=== PATIENT | female | born 1955 | race Caucasian/White ===

== ENCOUNTER 2022-11-07 10:44 | Outpatient (REF) | payer MEDICARE, SELFPAY ==
[2022-11-07 11:27] LABS: MANUAL DIFF FLAG NO
[2022-11-07 11:36] LABS: Basophils Absolute Auto 0.1 X10*3/uL (0.0-0.2); Basophils Percent Auto 0.6 % (0-2); Eosinophils Absolute Auto 0.1 X10*3/uL (0.0-0.4); Eosinophils Percent Auto 1.4 % (0-4); Hematocrit 43.5 % (37.0-47.0); Hemoglobin 15.4 g/dl (12.0-16.0); Imm Gran Abs Auto 0.03 X10*3/uL (0.00-0.03); Imm Gran Pct Auto 0.4 % (0.0-0.4); Lymphocytes Percent Auto 24.9 % (20-40); Mean Corpuscular HGB Conc 35.4 g/dl (31.0-35.0); Mean Corpuscular Volume 90.4 fL (80.0-98.0); Mean Platelet Volume 9.7 fL (9.4-12.3); Monocytes Absolute Auto 0.9 X10*3/uL (0.1-1.2); Monocytes Percent Auto 11.5 % (2-11); Neutrophils Absolute Auto 4.9 x10*3/uL (2.0-8.3); Neutrophils Percent Auto 61.2 % (45-73); Platelet Count 227 X10*3/uL (160-400); Red Blood Count 4.81 X10*6/uL (4.20-5.50); Red Cell Distribution Width 12.5 % (11.0-16.0)
[2022-11-07 12:27] LABS: Erythrocyte Sedimentation Rate 10 MM/HR (0-20)
[2022-11-07 12:56] LABS: Anion Gap 10 (12-20); Blood Urea Nitrogen 15 mg/dL (9-16); Calcium 8.8 mg/dL (8.4-10.2); Carbon Dioxide 30 mmol/L (22-29); Chloride 100 mmol/L (96-108); Estimated Glomerular Filt Rate 53; Glucose Random 83 mg/dL (60-115); Potassium 3.3 mmol/L (3.3-5.1); Sodium 137 mmol/L (135-145); Uric Acid 10.1 mg/dL (2.4-5.7)
[2022-11-07 13:12] LABS: Rheumatoid Factor < 13.0 IU/mL (<15.0)
[2022-11-11 15:09] LABS: CRP High Sensitivity 4.1 mg/L
== END 2022-11-07 10:45 | disposition home or self-care (01) ==
LOC: HO.WFDLDS 10:44
PROVIDERS: Visit Provider Family Medicine
DX: Z00.00 Encounter for general adult medical examination without abnormal findings (principal); M79.676 Pain in unspecified toe(s); M79.89 Other specified soft tissue disorders
CPT/HCPCS: 36415; 80048; 84550; 85025; 85652; 86141; 86431

== ENCOUNTER 2023-06-17 08:15 | Outpatient (AMB) | payer MEDICARE, SELFPAY ==
--- NOTE | 2023-06-17 08:18 | MHC.OFFVIS ---
Intake Vital Signs 06/17/23 08:21 Height 5 ft 6 in Weight 208 lb BMI 33.6 Intake Visit Reasons: New Pt - Right Shoulder Pain Intake Note: Jarek is a 67 year old Left handed male who presents as a new patient with Right shoulder pain. Patient reports that his pain is a 9 on the 1-10 pain scale the pain is at it's worse when reaching forward or above the head. He has had surgery on his Right shoulder at [facility] in 2019. The patient states that at that time he had ?retorn a tendon?. The patient reports weakness when lifting his right hand above shoulder height. He has done physical therapy which aggravated his symptoms. He has also tried Tylenol and anti-inflammatory medicines as well as tramadol which gave him minimal relief. He has had injections in the past which gave him no relief. Allergies No Known Allergies Allergy (Verified 06/17/23 08:24) Medication List - Last Reconciled 06/17/23 by Maikol Salmon MD chlorthalidone 25 mg PO DAILY finasteride 1 mg PO DAILY losartan 25 mg PO DAILY meloxicam 15 mg PO DAILY tramadol 50 mg PO BID PRN 2 days [facility] Surgical History Hx of shoulder surgery (~2019) Social History Patient Tobacco Use Status: Former Tobacco user Physical Exam Vital Signs: BMI result Body Mass Index 33.6 Const Other: Well-nourished well-developed very friendly male awake alert and oriented x3 in no acute distress Extrem Other: Bilateral upper extremity examination shows good capillary refill, no skin lesions noted, normal sensation light touch Right shoulder examination shows decreased active range of motion but almost full passive range of motion when compared to his left shoulder, 4/5 strength with supraspinatus testing, positive impingement signs, no instability Results Reviewed Results Reviewed: X-rays of the patient's right shoulder show moderate acromioclavicular joint narrowing, a type 2 acromion, no acute bony abnormalities Assessment & Plan Assessment & Plan (1) Right shoulder pain: Code(s): M25.511 - Pain in right shoulder Plan Mr. Hwang presents with progressively worsening right shoulder pain and weakness most likely due to a recurrent rotator cuff tear. Thus, I will send the patient for an MRI of his right shoulder for further evaluation. I will see him back once the MRI is completed to discuss the findings and treatment options. He will continue with his range of motion exercises in the meantime. I spent 22 minutes in reviewing the patient's records and imaging studies, seeing the patient and documenting in the medical record. Orders: Orders XR shoulder RT min 2V Today M25.511 - Pain in right shoulder MR shoulder RT wo con Today M25.511 - Pain in right shoulder Coding Level of Care Code New Pt Level 2 (55935) Diagnoses Right shoulder pain M25.511
[2023-06-17 08:21] VITALS: BMI 33.6
== END 2023-06-17 08:39 | disposition home or self-care (01) ==
PROVIDERS: Visit Provider Orthopaedic Surgery
DX: M25.511 Pain in right shoulder (principal)
CPT/HCPCS: 99202

== ENCOUNTER 2023-06-17 12:05 | Outpatient (REF) | payer MEDICARE, SELFPAY ==
--- NOTE | ~2023-06-17 | XR_ITS ---
EXAMINATION: XR SHOULDER, RIGHT CLINICAL INFORMATION: Pain. COMPARISON: None available. TECHNIQUE: AP neutral and scapular Y views of the right shoulder are submitted. FINDINGS: There is mild bony demineralization. The glenohumeral joint is intact and shows mild peripheral osteophyte formation. The acromioclavicular and coracoclavicular intervals are normal. There is mild osteoarthritic change of the acromioclavicular joint. No fracture or dislocation is seen. There is a small distal acromial undersurface osteophyte, and there is mild cortical irregularity of the greater tuberosity of the proximal right humerus. No focal soft tissue calcification or foreign body is seen. There is no right pneumothorax. XR/XR shoulder RT min 2V IMPRESSION: 1. There is mild osteoarthritic change of the right glenohumeral and acromioclavicular joints. 2. Findings suggest mild right rotator cuff impingement.
== END 2023-06-17 12:06 | disposition home or self-care (01) ==
LOC: HO.HOSX 12:05
PROVIDERS: Visit Provider Orthopaedic Surgery
DX: M25.511 Pain in right shoulder (principal)
CPT/HCPCS: 73030; 99202

== ENCOUNTER 2023-07-14 08:49 | Outpatient (AMB) | payer MEDICARE, SELFPAY ==
[2023-07-14 08:53] VITALS: BMI 33.6
--- NOTE | 2023-07-14 08:53 | MHC.OFFVIS ---
Intake Vital Signs 07/14/23 08:53 Height 5 ft 6 in Weight 208 lb BMI 33.6 Intake Visit Reasons: OV - right shoulder MRI review Intake Note: Jarek is a 67 year old Left hand dominate male who presents for a MRI review of his Right shoulder. The patient describes his pain as sharp in nature. He did undergo right shoulder rotator cuff repair surgery performed by another orthopedic surgeon in 2014. The patient states that following that surgery he fell onto his right shoulder and was told that he ?re-tear? his rotator cuff tendons. The patient did not wish to undergo further surgery at that time. The patient reports weakness when lifting his right hand above shoulder height. He has tried Tylenol and anti-inflammatory medicines which gave him minimal relief. Allergies No Known Allergies Allergy (Verified 07/14/23 08:54) Medication List - Last Reconciled 07/14/23 by Maikol Salmon MD chlorthalidone 25 mg PO DAILY finasteride 1 mg PO DAILY losartan 25 mg PO DAILY meloxicam 15 mg PO DAILY tramadol 50 mg PO BID PRN 2 days [facility] Surgical History Hx of shoulder surgery (~2019) Social History Patient Tobacco Use Status: Former Tobacco user Physical Exam Vital Signs: BMI result Body Mass Index 33.6 Const Other: Well-nourished well-developed very friendly male awake alert and oriented x3 in no acute distress Extrem Other: Bilateral upper extremity examination shows good capillary refill, no skin lesions noted, normal sensation light touch Right shoulder examination shows slightly decreased range of motion when compared to his left shoulder, 4 out of 5 strength with supraspinatus testing, positive impingement signs, tenderness over his acromioclavicular joint, no instability Results Reviewed Results Reviewed: Patient MRI of the patient's right shoulder shows mild to moderate glenohumeral joint degenerative changes, a type 2 acromion, severe acromioclavicular joint narrowing, signal change within the supraspinatus tendon due to partial-thickness tearing versus a small full-thickness tear Assessment & Plan Assessment & Plan (1) Impingement of right shoulder: Code(s): M25.811 - Other specified joint disorders, right shoulder Plan Mr. Hwang presents with right shoulder pain and weakness due to impingement syndrome, acromioclavicular joint arthritis and partial-thickness rotator cuff tearing versus possible recurrent full-thickness tearing. I had a lengthy discussion with the patient regarding the treatment options. He wishes to hold off on surgery for now. I did give him a prescription to go to formal physical therapy. The do's and don'ts of lifting were discussed at length with the patient. He will contact me prior to his follow-up appointment in 2 months should any questions or concerns arise. If he fails continued non operative treatments we will further discuss the risks and benefits of right shoulder surgery. I spent 22 minutes in reviewing the patient's records and imaging studies, seeing the patient and documenting in the medical record. Orders: Orders PT Evaluation and Treatment Today M25.811 - Other specified joint disorders, right shoulder Coding Level of Care Code Est Pt Level 2 (97510) Diagnoses Impingement of right shoulder M25.811
== END 2023-07-14 09:14 | disposition home or self-care (01) ==
PROVIDERS: Visit Provider Orthopaedic Surgery
DX: M25.811 Other specified joint disorders, right shoulder (principal)
CPT/HCPCS: 99213

== ENCOUNTER → 2023-07-14 08:49 | Outpatient (BNVA) | payer MEDICARE, SELFPAY | PROVIDERS: Visit Provider Orthopaedic Surgery | DX: M25.811 Other specified joint disorders, right shoulder (principal) | CPT/HCPCS: 99212 ==

== ENCOUNTER 2024-04-22 13:46 | Outpatient (AMB) | payer MEDICARE, SELFPAY ==
[2024-04-22 14:09] VITALS: BP 116/70; PULSE 72; O2SAT 98; BMI 33.4
--- NOTE | 2024-04-22 14:09 | MHC.OFFVIS ---
Vital Signs 04/22/24 14:09 Height 5 ft 6 in Weight 207 lb 3.752 oz BMI 33.4 BP 116/70 Blood Pressure Location Lt brachial Position Sitting Pulse 72 Pulse Source Pulse Oximeter Pulse Oximetry (%) 98 Oxygen Delivery Method Room Air Intake Visit Reasons: Arthritis/CM APT Intake Note: Patient presents for follow up on arthritis in hands and knees. Allergies No Known Allergies Allergy (Verified 04/22/24 14:12) HPI HPI Arthritis/CM APT: Details: He has been experiencing pain in his thumbs for a few months. He took meloxicam for a couple of days then held it for a day or 2 then took it again with relief. 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 [facility] Surgical History Hx of shoulder surgery (~2019) Social History Patient Tobacco Use Status: Former Tobacco user Review of Systems Const All systems reviewed & are unremarkable except as noted in HPI and below Physical Exam Vital Signs: Last Vital Signs Pulse 72 04/22/24 14:09 BP 116/70 04/22/24 14:09 Pulse Ox 98 04/22/24 14:09 Oxygen Delivery Method Room Air 04/22/24 14:09 BMI result Body Mass Index 33.4 Const Other: General: Comfortable CVS: RRR Respiratory: clear to auscultation bilaterally. Good respiratory effort Skin: No lesions seen MSK: Tender to palpate bilateral CMCs with squaring. Tender 1st MCPs. Able to make a fist. No synovitis noticed. [place] nodes present. Assessment & Plan Assessment & Plan (1) Osteoarthritis of CMC joint of thumb: Comment: Bilateral. We discussed the natural course and conservative management. Code(s): M18.9 - Osteoarthritis of first carpometacarpal joint, unspecified Category: Medical Plan: Requesting labs from recent hospitalization at [facility] with attention to creatinine, AST and ALT He will start taking meloxicam 15 mg daily for 1-2 weeks consistently. If no benefit he will then try using OTC diclofenac gel 1% applied to affected area 3 times a day Prescription for bilateral CMC splints prescribed Return to clinic in 3 months (2) Osteoarthritis of hands, bilateral: Comment: Clinical diagnosis. Code(s): M19.041 - Primary osteoarthritis, right hand; M19.042 - Primary osteoarthritis, left hand Category: Medical Plan: See above Plan See above Medications: New [cmc splints bilateral] As directed 2 ea 0RF cmc osteoarthritis bilateral Coding Level of Care Code Est Pt Level 3 (61037) Complex EM visit Add On G2211 Diagnoses Osteoarthritis of CMC joint of thumb M18.9 Osteoarthritis of hands, bilateral M19.041; M19.042
--- OUTSIDE RECORDS SUMMARY | 2024-04-28 02:41 | XMS_ITS ---
Author Name [facility] Organization Unknown History of Medication Use Medication Directions Dispensed Refills Start Date End Date Stat us CiprodexTakeNo date recordedNo form recordedNo frequency recordedNo route recordedNo set duration recordedNo set duration amount recordedsuspendedNo dosage strength recordedNo dosage strength units of measure recorded 05/09/2023 suspended finasterideTake (oral)[id number] frequency recordedoralNo set duration recordedNo set duration amount tkmydqbhbpfnwf2rx 05/09/2023 active promethazine-DMTake 5 ml (oral) 3 times per day PRN - Cough for 7 [id number] times per egbqsll3urzpptowgj5.25-15m g/5 mL 05/09/2023 active losartanTake (oral)[id number] frequency recordedoralNo set duration recordedNo set duration amount ckhhkxfnsekgnx71jt 05/09/2023 active promethazine-DMTake 5 ml (oral) 3 times per day PRN - Cough for 7 [id number] times per uyvvkhr9czgmcqgliw7.25-15m g/5 mL 05/09/2023 active indomethacinTake (oral)[id number] frequency recordedoralNo set duration recordedNo set duration amount kpllnenvmlbzuc98aj 05/09/2023 active benzonatateTake 1 ca psule (Oral) 3 times per day PRN - Cough for 5 [id number] times per wpuOwbp0fvxehquphr680di 05/09/2023 acti ve meloxicamTake (oral)[id number] frequency recordedoralNo set duration recordedNo set duration amount vgerkgsuybayyi94xq 05/09/2023 active chlorthalidoneTake (oral)[id number] frequency recordedoralNo set duration recordedNo set duration amount mirruavihntriz49xb 05/09/2023 active Problems Problem Status Onset Date Problem Type Date of Resoluti on Source Tachycardia, unspecified active 2023-05-07 ProblemAct [facility] hypertension active ProblemAct [facility] Hyperlipidemia, unspecified active ProblemAct [facility] Cough, unspecified active 2023-05-07 ProblemAct [facility] Other specified arthritis, unspecified site active ProblemAct [facility] Dyspnea, unspecified active 2023-05-07 ProblemAct [facility]
== END 2024-04-22 14:56 | disposition home or self-care (01) ==
PROVIDERS: Visit Provider Internal Medicine Rheumatology
DX: M18.9 Osteoarthritis of first carpometacarpal joint, unspecified (principal); M19.041 Primary osteoarthritis, right hand; M19.042 Primary osteoarthritis, left hand
CPT/HCPCS: 99213; G2211

== ENCOUNTER → 2024-04-22 13:46 | Outpatient (BNVA) | payer MEDICARE, SELFPAY | PROVIDERS: Visit Provider Internal Medicine Rheumatology | DX: M18.9 Osteoarthritis of first carpometacarpal joint, unspecified (principal); M19.041 Primary osteoarthritis, right hand; M19.042 Primary osteoarthritis, left hand | CPT/HCPCS: 99212 ==

== ENCOUNTER 2024-06-16 09:46 | Outpatient (REF) | payer MEDICARE, SELFPAY ==
--- NOTE | ~2024-06-16 | XR_ITS ---
EXAMINATION: XR SHOULDER 2 OR MORE VIEWS RIGHT HISTORY: M25.511 - Pain in right shoulder COMPARISON: Comparison is made with the prior examination dated 06/17/2023. FINDINGS: Two views of the right shoulder are submitted. Osseous mineralization is normal. There is no fracture or dislocation. Again seen is mild osteoarthritis of the glenohumeral and acromioclavicular joints with osteophyte formation. The soft tissues are unremarkable. XR/XR shoulder RT min 2V IMPRESSION: Mild osteoarthritis of the glenohumeral and acromioclavicular joints. Electronically signed by: Jose Schaffer MD 06/17/2024 07:45 AM [facility]
--- OUTSIDE RECORDS SUMMARY | 2024-06-16 11:29 | XMS_ITS | Clinical Summary ---
Author Organization [facility] Address [address] [place] [address] Care Team Providers Care Claim Approver Name Role Phone Boom Patel MD Primary Care Provider [phone] Allergies No known active allergies Medications Medication Sig Dispensed Refills Start Date End Date Status finasteride (PROPECIA) 1 MG tablet 0 04/20/2019 Active ACETAMINOPHEN EXTRA STRENGTH 500 MG tablet TAKE 1 TABLET TID 0 10/20/2019 Active amoxicillin (AMOXIL) 500 MG tablet Take 4 tabs 1 hour prior to dental appointment 20 tablet 3 11/02/2019 Active oxyCODONE (ROXICODONE) 5 MG immediate release tablet 1-2 tabs p.o. every 4 to 6 hours as needed for pain. May fill for lesser quantity 40 tablet 0 11/02/2019 Active Additional Information Patient not taking.Reason: Other, Reported on 09/05/2020 gabapentin (NEURONTIN) 100 MG capsule TK 3 CS PO HS 90 capsule 0 11/03/2019 Active Sennosides-Docusat e Sodium (SENNA PLUS) 8.6-50 MG CAPS Take 8.6 capsules by mouth 2 (two) times a day. 60 capsule 1 11/03/2019 Active oxyCODONE HCl ER (OXYCONTIN) 10 MG T12A controlled release tablet Take 1 tablet (10 mg total) by mouth every 12 (twelve) hours. 10 tablet 0 11/06/2019 Active Additional Information Patient not taking.Reason: Other, Reported on 09/05/2020 SENNA PLUS 8.6-50 MG TK 1 T PO BID 0 11/06/2019 Active Morphine Sulfate ER (MS CONTIN) 15 MG TBCR Take 1 tablet (15 mg total) by mouth every 12 (twelve) hours. 20 tablet 0 2019 Active Additional Information Patient not taking.Reason: Other, Reported on 09/05/2020 doxepin (SINEquan) 10 MG capsule Take 10 mg by mouth every night at bedtime. 0 06/14/2020 Active celecoxib (CeleBREX) 200 MG capsule celecoxib 200 mg capsule 0 Active Active Problems Problem Noted Date Diagnosed Date Postop check 11/02/2019 Arthritis of knee, right 06/01/2019 Family History Medical History Relation Name Comments Clotting disorder Father Relation Name Status Comments Father Social History Tobacco Use Types Packs/Day Years Used Date Smoking Tobacco: Never Assessed Sex and Gender Information Value Date Recorded Sex Assigned at Not on file Gender Identity Not on file Sexual Orientation Not on file Job Start Date Occupation Industry Not on file Not on file Not on file Last Filed Vital Signs Vital Sign Reading Time Taken Comments Blood Pressure - - Pulse - - Temperature - - Respiratory Rate - - Oxygen Saturation - - Inhaled Oxygen Concentration - - Weight 90.7 kg (200 lb) 09/05/2020 3:11 PM EDT Height 167.6 cm (5' 6 ) 09/05/2020 3:11 PM EDT Body Mass Index 32.28 09/05/2020 3:11 PM EDT Plan of Treatment Health Maintenance Due Date Last Done Comments Hepatitis C Screening 1955 COVID-19 Vaccine (#1) 06[birth year]16[birth year]1955 Depression Screening 1966 BMI Counseling 1972 Preventative Health Evaluation 1972 DTap / Tdap / Td (1 - Tdap) 1973 Colon Cancer Screening (Colonoscopy) 12/15/1999 Shingrix-Zoster Vaccine (1 of 2) 2004 Fall Risk Assessment 12/15/2019 Pneumococcal Vaccine (1 of 1 - PCV) 12/15/2019 Influenza Vaccine (#1) 2024 RSV Adult > 60+ Yrs or Pregn ant (1 - 1-dose 75+ series) 2029 Hepatitis B Vaccines Aged Out No long er eligible based on patient's age to complete this topic RSV Ped < 20 months Aged Out No longe r eligible based on patient's age to complete this topic Care Teams Claim Approver Relationship Specialty Start Date End Date Boom Patel MD [address] [place] [id number] PCP - General Internal Medicine 05/24/19
--- OUTSIDE RECORDS SUMMARY | 2024-06-16 11:29 | XMS_ITS | Clinical Summary ---
Author Organization Code [facility] it Address [address] [place] [address] Care Team Providers Care Durable Medical Equipment Technician Name Role Phone Maximus Mendoza MD Primary Care Provider [phone] Surgical History Surgery Date Site/Laterality Comments KNEE SURGERY PROCEDURE:KNEE SURGERY SHOULDER SURGERY PROCEDURE:SHOULDER SURGERY JOINT REPLACEMENT PROCEDURE:JOINT REPLACEMENT Medical History Medical History Date Comments Arthritis DX:Arthritis Peptic ulceration DX:Peptic ulce ration Family History Medical History Relation Name Comments Clotting disorder Father Relation Name Status Comments Father Social History Tobacco Use Types Packs/Day Years Used Date Smoking Tobacco: Never Assessed Sex and Gender Information Value Date Recorded Sex Assigned at Not on file Gender Identity Not on file Sexual Orientation Not on file Obstetrics History Plan of Treatment Health Maintenance Due Date Last Done Comments DTaP,Tdap,and Td Vaccines (1 - Tdap) 1973 Zoster Vaccines (1 of 2) 2004 Pneumococcal Vaccine: 65+ Ye ars (1 of 1 - PCV) 12/15/2019 Abdominal Aortic Aneurysm (A AA) Screen 04/16/2022 Cholesterol Screening (Lipid Panel) 04/16/2022 Colorectal Cancer Screening: Colonoscopy 04/16/2022 Depression Screening 04/16/2022 Falls Risk Assessment 04/16/2022 Hepatitis C Screening 04/16/2022 Social Influencers of Health Screening 04/16/2022 COVID-19 Vaccine ( - 2023-2 5 season) 2024 Influenza Vaccine (#1) 2024 RSV Immunization Patients 60 + Years Old (1 - 1-dose 75+ series) 2029 HIB Vaccines Aged Out No longer eligi ble based on patient's age to complete this topic HPV Vaccines Aged Out No longer eligi ble based on patient's age to complete this topic Hepatitis A Vaccines Aged Out No long er eligible based on patient's age to complete this topic Hepatitis B Vaccines Aged Out No long er eligible based on patient's age to complete this topic IPV Vaccines Aged Out No longer eligi ble based on patient's age to complete this topic MMR Vaccines Aged Out No longer eligi ble based on patient's age to complete this topic Meningococcal ACWY Vaccine Aged Out N o longer eligible based on patient's age to complete this topic RSV Immunization Patients Un christy 20 months Aged Out No longer eligible b ased on patient's age to complete this topic Varicella Vaccines Aged Out No longer eligible based on patient's age to complete this topic Care Teams Durable Medical Equipment Technician Relationship Specialty Start Date End Date Maximus Mendoza MD [address] [place] [id number] PCP - General 06/12/22
== END 2024-06-16 09:47 | disposition home or self-care (01) ==
LOC: HO.HOSX 09:46
PROVIDERS: Visit Provider Orthopaedic Surgery
DX: M25.311 Other instability, right shoulder (principal); M25.511 Pain in right shoulder
CPT/HCPCS: 73030; 99212

== ENCOUNTER 2024-06-16 09:59 | Outpatient (AMB) | payer MEDICARE, SELFPAY ==
--- NOTE | 2024-06-16 10:00 | MHC.OFFVIS ---
Vital Signs 06/16/24 10:01 Height 5 ft 6 in Weight 207 lb 3 oz BMI 33.4 Intake Visit Reasons: OV-Right shoulder injury-Fell 06/12/24 Intake Note: Jarek is a 68 year old male who presents with complaints of worsening right shoulder pain and weakness after falling on 06/12/2024. The patient states that he slipped on the ice and fell directly onto his right shoulder. Did have an MRI of his right shoulder last year which showed a small full-thickness rotator cuff tear. Has been doing physical therapy exercises which aggravated his pain. He reports difficulty lifting his right hand to shoulder height. He has tried Tylenol and Aleve which gave him minimal relief. He denies any other injuries. Allergies No Known Allergies Allergy (Verified 06/16/24 10:01) Medication List - Last Reconciled 06/16/24 by Maikol Salmon MD chlorthalidone 25 mg PO DAILY [cmc splints bilateral As directed] finasteride 1 mg PO DAILY losartan 25 mg PO DAILY meloxicam 15 mg PO DAILY metoprolol succinate ER 25 mg PO BID tramadol 50 mg PO BID PRN 2 days [facility] Surgical History Hx of shoulder surgery (~2019) Social History Patient Tobacco Use Status: Former Tobacco user Physical Exam Vital Signs: BMI result Body Mass Index 33.4 Const Other: Well-nourished well-developed very friendly male awake alert and oriented x3 in no acute distress Extrem Other: Right shoulder examination shows limited active range of motion with forward flexion at 30 degrees, external rotation to 30 degrees, internal rotation to his back pocket, 2/5 strength with supraspinatus testing, no instability Results Reviewed Results Reviewed: X-rays of the patient's right shoulder taken today show severe acromioclavicular joint narrowing, a type 2 acromion, no acute bony abnormalities Assessment & Plan Assessment & Plan (1) Rotator cuff insufficiency of right shoulder: Code(s): M25.311 - Other instability, right shoulder Category: Medical Plan Mr. Hwang presents with progressively worsening right shoulder pain and weakness most likely due to worsening of his small rotator cuff tear. Thus, I will send the patient for an MRI of his right shoulder for further evaluation. He will continue with his range of motion exercises in the meantime to prevent stiffness. I will see him back once the MRI is completed to discuss the findings and treatment options. Feel free to call me at any time should regarding his orthopedic management arise. I spent 22 minutes in reviewing the patient's records and imaging studies, seeing the patient and documenting in the medical record. Orders: Orders XR shoulder RT min 2V Today M25.511 - Pain in right shoulder MR shoulder RT wo con Today M25.311 - Other instability, right shoulder Coding Level of Care Code Est Pt Level 3 (26994) Complex EM visit Add On G2211 Diagnoses Rotator cuff insufficiency of right shoulder M25.311
[2024-06-16 10:01] VITALS: BMI 33.4
== END 2024-06-16 10:21 | disposition home or self-care (01) ==
PROVIDERS: Visit Provider Orthopaedic Surgery
DX: M25.311 Other instability, right shoulder (principal)
CPT/HCPCS: 99213; G2211

== ENCOUNTER → 2024-06-16 10:01 | Outpatient (BNV) | payer MEDICARE, SELFPAY | PROVIDERS: Visit Provider Radiology Diagnostic Radiology | DX: M25.511 Pain in right shoulder (principal) | CPT/HCPCS: 73030 ==

== ENCOUNTER → 2024-06-22 07:41 | Outpatient (BNV) | payer MEDICARE, SELFPAY | PROVIDERS: Visit Provider Radiology Diagnostic Radiology | DX: M25.311 Other instability, right shoulder (principal) | CPT/HCPCS: 73221 ==

== ENCOUNTER 2024-06-30 10:13 | Outpatient (AMB) | payer MEDICARE, SELFPAY ==
--- NOTE | 2024-06-30 10:14 | MHC.OFFVIS ---
Intake Visit Reasons: Tele-Right shoulder MRI Review [phone] Intake Note: Jarek is a 68 year old male who presents with complaints of worsening right shoulder pain and weakness after falling on 06/12/2024. The patient states that he slipped on the ice and fell directly onto his right shoulder. Did have an MRI of his right shoulder last year which showed a small full-thickness rotator cuff tear. Has been doing physical therapy exercises which aggravated his pain. The patient states that he did undergo right right shoulder surgery in 2014 at [facility]. He reports difficulty lifting his right hand to shoulder height. He has tried Tylenol and Aleve which gave him minimal relief. He denies any other injuries. Allergies No Known Allergies Allergy (Verified 06/30/24 10:15) Medication List - Last Reconciled 06/30/24 by Maikol Salmon MD chlorthalidone 25 mg PO DAILY [cmc splints bilateral As directed] finasteride 1 mg PO DAILY losartan 25 mg PO DAILY meloxicam 15 mg PO DAILY metoprolol succinate ER 25 mg PO BID tramadol 50 mg PO Q12H PRN PFSH Surgical History Hx of shoulder surgery (~2019) Social History Patient Tobacco Use Status: Former Tobacco user Physical Exam Const Other: Tele health appointment Telehealth Telehealth Telehealth Platform: Telephone Location of provider rendering services: practice address Location of patient: address on file Patient Identification confirmed using: Name, : Yes Telehealth method: voice only Patient verbally consented to treatment: Yes Patient verbally consented to billing insurance company: Yes Patient informed of any privacy concerns related to visit: Yes Minutes spent on Phone/Video with Pt.: 12 Results Reviewed Results Reviewed: MRI of the patient's right shoulder shows a large, chronic recurrent rotator cuff tear with retraction almost to the lip of the glenoid Assessment & Plan Assessment & Plan (1) Rotator cuff insufficiency of right shoulder: Code(s): M25.311 - Other instability, right shoulder Category: Medical Plan Mr. Hwang presents with recurrent right shoulder pain and weakness due to a large rotator cuff tear. I had a lengthy discussion with the patient regarding the treatment options. At this point the patient has failed continued non operative treatments. He is interested in undergoing surgery. I am not sure based on the size of the tear that a primary repair is possible at this point. He may be a candidate for reverse total shoulder replacement surgery. Thus, I will arrange for him to have a consultation with my partner, Dr. Colindres. He will continue with his range of motion exercises in the meantime. He will follow-up as instructed. Coding Level of Care Code Tele Est Pt Level 2 (46458) Diagnoses Rotator cuff insufficiency of right shoulder M25.311
--- OUTSIDE RECORDS SUMMARY | 2024-06-30 12:03 | XMS_ITS | Clinical Summary ---
Author Organization [facility] Address [address] [place] [address] Care Team Providers Care Dirt Bike Racer Name Role Phone Boom Patel MD Primary Care Provider [phone] Allergies No known active allergies Medications Medication [...] age to complete this topic Care Teams Dirt Bike Racer Relationship Specialty Start Date End Date Boom Patel MD [address] [place] [address] PCP - General Internal Medicine 05/24/19
--- OUTSIDE RECORDS SUMMARY | 2024-06-30 12:04 | XMS_ITS | Clinical Summary ---
Author Organization [facility] it Address [address] [place] [address] Care Team Providers Care Fruit Rancher Name Role Phone Maximus Mendoza MD Primary Care Provider [phone] Surgical History Surgery Date Site/Laterality Comments KNEE [...] Recorded Sex Assigned at Not on file Legal Sex Male 11:14 AM EST Gender Identity Not on file Sexual Orientation Not on file Obstetrics History Plan of Treatment Health Maintenance Due Date Last Done Comments DTaP,Tdap,and Td Vaccines (1 - Tdap) 1973 Pneumococcal Vaccine: 50+ Ye ars (1 of 1 - PCV) 2004 Zoster Vaccines (1 of 2) 2004 Abdominal Aortic Aneurysm (A AA) Screen 04/16/2022 [...] patient's age to complete this topic Meningococcal B Vacine Aged Out No lo nger eligible based on patient's age to complete this topic RSV Immunization Patients Un christy 20 months Aged Out No longer eligible b ased on patient's age to complete this topic Varicella Vaccines Aged Out No longer eligible based on patient's age to complete this topic Care Teams Fruit Rancher Relationship Specialty Start Date End Date Maximus Mendoza MD [address] [address] PCP - General 06/12/22
== END 2024-06-30 11:12 | disposition home or self-care (01) ==
LOC: HO.HOS 10:13
PROVIDERS: Visit Provider Orthopaedic Surgery
DX: M25.311 Other instability, right shoulder (principal)
CPT/HCPCS: 98016

== ENCOUNTER → 2024-06-30 10:13 | Outpatient (BNVA) | payer MEDICARE, SELFPAY | PROVIDERS: Visit Provider Orthopaedic Surgery ==

== ENCOUNTER 2024-07-27 10:54 | Outpatient (AMB) | payer MEDICARE, SELFPAY ==
--- NOTE | 2024-07-27 11:03 | MHC.OFFVIS ---
Vital Signs 07/27/24 11:05 Height 5 ft 6 in Weight 207 lb 14.334 oz BMI 33.6 BP 170/80 H Blood Pressure Location Rt brachial Position Sitting Pulse 97 Pulse Source Pulse Oximeter Pulse Oximetry (%) 97 Oxygen Delivery Method Room Air Intake Visit Reasons: Follow Up 3mo Intake Note: Patient presents for follow up on arthritis in hands and knees. Allergies No Known Allergies Allergy (Verified 07/27/24 11:06) [facility] HPI Follow Up 3mo: Details: He is planning surgery for his right shoulder in early September. Surgeon told him that they will be placing a patch on the shoulder. There is no plan for replacement of shoulder joint. He did not receive CMC splints. Failed diclofenac gel. Meloxicam is effective for controlling pain in his hands. However, it does not help with his right shoulder pain. He takes ibuprofen 600 mg for his shoulder the next day he may take meloxicam for his hand pain. He alternates between ibuprofen and meloxicam during the week. Last week he took meloxicam twice. [facility] Surgical History Hx of shoulder surgery (~2019) Social History Patient Tobacco Use Status: Former Tobacco user Review of Systems Const All systems reviewed & are unremarkable except as noted in HPI and below Physical Exam Vital Signs: Last Vital Signs Pulse 97 07/27/24 11:05 BP 170/80 H 07/27/24 11:05 Pulse Ox 97 07/27/24 11:05 Oxygen Delivery Method Room Air 07/27/24 11:05 BMI result Body Mass Index 33.6 Const Other: General: Comfortable CVS: RRR Respiratory: clear to auscultation bilaterally. Good respiratory effort Skin: No lesions seen MSK: Tender to palpate bilateral CMCs with squaring. Warmth of left CMC. Able to make a fist. No synovitis noticed. Heberden nodes present. Assessment & Plan Assessment & Plan (1) Osteoarthritis of hands, bilateral: Comment: Clinical diagnosis. Meloxicam is effective but he is alternating between meloxicam and ibuprofen to treat both his right shoulder pain and hand pain. We discussed changing NSAID to nabumetone. Code(s): M19.041 - Primary osteoarthritis, right hand; M19.042 - Primary osteoarthritis, left hand Category: Medical Qualifiers: Osteoarthritis type: primary Qualified Code(s): M19.041 - Primary osteoarthritis, right hand; M19.042 - Primary osteoarthritis, left hand Plan: Labs on chronic NSAID ordered Start nabumetone 500 mg twice a day with food. If he has partial benefit on nabumetone, I will increase nabumetone to 750 mg twice a day He will discontinue ibuprofen and meloxicam X-ray bilateral hands ordered OT ordered CMC custom splint prescription given to patient Return to clinic in 3-4 months (2) Osteoarthritis of CMC joint of thumb: Code(s): M18.9 - Osteoarthritis of first carpometacarpal joint, unspecified Category: Medical Qualifiers: Laterality: bilateral Osteoarthritis type: primary Qualified Code(s): M18.0 - Bilateral primary osteoarthritis of first carpometacarpal joints Plan: See above Orders: Orders XR hand RT min 3V Today M19.041 - Primary osteoarthritis, right hand, M19.042 - Primary osteoarthritis, left hand XR hand LT min 3V Today M19.041 - Primary osteoarthritis, right hand, M19.042 - Primary osteoarthritis, left hand Creatinine Today M19.041 - Primary osteoarthritis, right hand, M19.042 - Primary osteoarthritis, left hand Aspartate Amino Transferase Today M19.041 - Primary osteoarthritis, right hand, M19.042 - Primary osteoarthritis, left hand Alanine Aminotransferase Today M19.041 - Primary osteoarthritis, right hand, M19.042 - Primary osteoarthritis, left hand Complete Blood Count Auto Diff Today M19.041 - Primary osteoarthritis, right hand, M19.042 - Primary osteoarthritis, left hand OT Evaluation and Treatment Today M18.9 - Osteoarthritis of first carpometacarpal joint, unspecified Medications: New nabumetone Take with food. Replace meloxicam and ibuprofen 500 mg PO BID 60 tabs 2RF arm brace (Wrist Brace) As directed Dx: cmc osteoarthritis Bilateral CMC splints custom made 1 ea 0RF Coding Level of Care Code Est Pt Level 3 (97764) Complex EM visit Add On G2211 Diagnoses Primary osteoarthritis of both hands M19.041; M19.042 Osteoarthritis type: primary Primary osteoarthritis of both first carpometacarpal joints M18.0 Laterality: bilateral Osteoarthritis type: primary
[2024-07-27 11:05] VITALS: BP 170/80; PULSE 97; O2SAT 97; BMI 33.6
--- OUTSIDE RECORDS SUMMARY | 2024-07-27 13:24 | XMS_ITS | Clinical Summary ---
Author Organization [facility] it Address [address] [place] [address] Care Team Providers Care Lumber Tripper Name Role Phone Maximus Mendoza MD Primary Care Provider [phone] Surgical History Surgery Date Site/Laterality Comments KNEE [...] age to complete this topic Care Teams Lumber Tripper Relationship Specialty Start Date End Date Maximus Mendoza MD [address] [address] PCP - General 06/12/22
--- OUTSIDE RECORDS SUMMARY | 2024-07-27 13:24 | XMS_ITS | Data Portability ---
Author Organization [place] [facility] [place] Address [address] [place] [address] Care Team Providers Care Harvesting Contractor Name Role Phone MARY [facility]OP [facility] Primary Care Provide r Assessment Encounter Date Assessment Date Assessment LastModified by Organization Details LastModified Time 07/14/2024 07/14/2024 IMPRESSION: 68-year-old [id number] man with a RIGHT shoulder rotator cuff tear.?? PLAN: I discussed the serious nature of revision shoulder arthroscopy and that outcomes are less predictable than primary cases with potential higher rates of complications, and less functional gains and less pain relief than primary I discussed the treatment options with the patient includin. Living with the symptoms. 2. Continued non-operative management. 3. Surgical intervention?? After going over these options, the patient would like to proceed with REVISION RIGHT shoulder arthroscopy, rotator cuff repair (partial or complete), possible subacromial decompression and related procedures. We reviewed the risks and benefits of surgery including but not limited to the following: Risk of anesthesia and/or surgery including: ; infection; reaction to implant or graft; nerve/tendon/vessel injury; deep venous thrombosis (DVT), pulmonary embolism (PE); shoulder stiffness, possible need to treat the biceps tendon including but not limited to tenotomy (cutting the tendon) or tenodesis (tying the tendon to the humeral bone) either arthroscopically or with open surgery in the subpectoral region, possible marco deformity of biceps or asymmetry of biceps, muscle cramping, possible need to resect the acromioclavicular joint (AC joint); rotator cuff repair non-healing or re-tear; hardware related problems; potential of rotor cuff tear irreparability (not able to repair the torn rotator cuff tendon), potential of the procedure to not alleviate the condition; and the potential need for further surgery in the future; hardware-related problems, potential of the procedure to not alleviate the condition, pain, stiffness, scarring, arthritis, reaction, unexpected findings, and the potential need for further surgery in the future. We also discussed the possible use of biologic augmentation with a collagen scaffold or an allograft dermal (skin) graft depending on the patients own rotator cuff tissue quality, tear size, and intraoperative determination of healing potential. After going over these risks, benefits, and alternatives the patient would like to proceed with surgery. All of their questions were answered satisfactorily and the patient gave me verbal surgical consent to proceed and signed the consent form. All appropriate paperwork was completed and the patient will contact our surgical scheduling department to coordinate the surgery. The patient will met with our Orthotics team for their post-operative needs. We will provide the post-operative pain management prescription and I discussed with limiting opioid use if possible. I discussed with the patient that the expected recovery time may be 3 to 9 months at minimum. I discussed with the patient that I preferred they limit post-operative opioid use and use the multimodal pain medicine strategy if possible.?? I had a clear conversation with the patient about post-op pain management and use of opioids specifically. We will be providing a multi-modal combination of medications designed to limit the use of opioids. The opioid will be used for short term post-op pain management only and should be used cautiously. I discussed the risks associated with the highly addictive nature of opioids (physical or psychological dependence), even when taken as prescribed, as well as over?? dosage. I also reviewed the dangers of opioids when taken alone or in combination with alcohol, benzodiazepines, sleep medications (prescription or over the counter), or other central nervous system depressants. Risks including but not limited to fatal respiratory depression and impaired judgement were discussed. I gave specific instructions not to drive while taking narcotic pain medication. At the conclusion of the visit, the patient verbally acknowledged that all questions were answered satisfactorily. Not available 07/22/2024 17:02:39 Plan of Treatment Reminders Order Date Submit Date Provider Last Modified By Organization Details Last Modified Time Details Appointments None recorded. Lab None recorded. Referral None recorded. Procedures None recorded. Surgeries shoulder arthroscopy (SURG) 2024 025 [email or web address] Not available 08:56:26 Imaging XR, shoulder, 2 or more view 2024 025 [email or web address] [facility], [address], [address], [place], [address], 08:29:28 Medication Orders None recorded. Patient TargetsNo targets recorded. Patient Instructions Encounter Date Encounter Id Patient Instructions Last Modified By Organization Details Last Modified Time 07/14/2024 [id number] I had the opportunity to review both the images and radiologic impression of an MRI of the right shoulder performed at [facility] on June 22, 2024. Radiologic impression states complete retracted tears of supraspinatus and subscapularis tendon, infraspinatus tendon appears largely intact although increased signal consistent with tendinopathy, muscle strain injuries the anterior middle deltoid posterior to the subscapularis no bone fracture contusion small amount of edema with subcortical cystic changes in the posterior greater tuberosity joint effusion with moderate glenohumeral osteoarthritis and superior subluxation of the humeral head upon the glenoid mild widening of the AC joint. Agree with this read demonstrates complete retracted tears of the supraspinatus and subscapularis Imaging: {{RIGHT* LEFT}} shoulder four view radiographs including AP, true AP (Grashey), scapular-Y, and axillary views were ordered by me, obtained today, reviewed with the patient, and independently interpreted by me as demonstrating a noted greater tuberosity excrescence concentric glenohumeral joint mild osteophyte noted on the inferior aspect of the humerus Not available 07/22/2024 17:09:15 Reason for Referral None Reported. Results Created Date Observation Date Name Description Value Unit Range Abnormal Flag Note LastModifiedBy Organization Detail LastModifiedTime 07/14/19 25 MRI, shoul christy, w/o contr ast No observ ation record ed. [email or web address] Not Available 06/20 15:46:15 Result Notes None recorded. Problems Name Problem SNOMED Code Status Onset Date Resolution Date Notes Provider Name and Address Organization Details Recorded Time Traumatic right rotator cuff tear Active 025 Janes Mayers MD [address], [place], [address], [place] [facility] 17:04:22 Problem Notes None recorded. Procedures Surgical History None recorded. Imaging Results Imaging Date Name Status LastModified by Organiz ation Details LastModified Time 07/14/2024 MRI, shoulder, w/o contrast completed [email or web address] Information not available 07/14/2024 15:46:15 Procedure Notes None recorded. Medical Equipment None Reported. Allergies No known drug allergies Medications Name Sig Start Date Stop Date Status Note LastModified by Organization Details LastModified Time meloxicam 15 mg tablet TAKE 1 TABLET BY MOUTH DAILY NEEDED FOR JOINT PAIN active Not Available Not Available No t Available chlorthalidone 25 mg tablet TAKE 1 TABLET BY MOUTH EVERY DAY active Not Available Not Available No t Available tramadol 50 mg tablet TAKE 1 TABLET BY MOUTH EVERY 12 HOURS NEEDED FOR PAIN active Not Available Not Available No t Available amoxicillin 500 mg tablet TAKE 4 TABLETS BY MOUTH 1 HOUR PRIOR TO APPT active Not Available Not Available No t Available losartan 25 mg tablet TAKE 1 TABLET BY MOUTH EVERY DAY active Not Available Not Available No t Available fluticasone propionate 50 mcg/actuation nasal spray,suspensi on INSTILL 1 SPRAY INTO EACH NOSTRIL EVERY MORNING active Not Available Not Available No t Available finasteride 1 mg tablet TAKE 1 TABLET BY MOUTH EVERY DAY active Not Available Not Available No t Available tadalafil 5 mg tablet TAKE 1 TABLET BY MOUTH AT THE SAME TIME EVERY DAY active Not Available Not Available No t Available metoprolol tartrate 25 mg tablet TAKE 1 TABLET BY MOUTH TWICE A DAY FOR 30 DAYS active Not Available Not Available No t Available GaviLyte-G 236 gram-22.74 gram-6.74 gram-5.86 gram oral solution TAKE 8 OUNCE BY MOUTH DIRECTED DRINK A GLASS EVERY 10-15 MINUTES active Not Available Not Available No t Available Vitals Date Recorded Body height Body mass index (BMI) Body weight Provider Name and Address Organization Details Last Updated DateTime 07/14/2024 167.64 cm 32.3 kg/m2 [address] [place] [facility] 07/16/2024 10:42:15 Social History Question Answer Notes LastModified by Organizat ion Details LastModified Time Tobacco Smoking Status Never Smoker Ashley Pitts null, [place] [facility] 07/16/2024 10:42:32 What Is Your Level Of Alcohol Consumption? Occasional [email or web address] Information not available 07/16/2024 Do You Use Any Illicit Or Recreational Drugs? No [email or web address] Information not available 07/16/2024 Do You Or Have You Ever Used Any Other Forms Of Tobacco Or Nicotine? No [email or web address] Information not available 07/16/2024 Sex: Unknown Functional Status None recorded. Mental Status None recorded. Family History Nothing Reported. Medical History Condition Response Hypertension Y Past Encounters Encounter ID Performer Location Encounter Start Date Encounter Closed Date Diagnosis/Indication Diagnosis SNOMED-CT Code Diagnosis ICD10 Code Diagnosis Note [id number] [place] [address] 07/14/2024 15:16:53 07/14/2024 16:58:53 Pain of right shoulder joint 4150809923 [id number] M25.511 Traumatic right rotator cuff tear 6365826940 7063689 S46.011A Health Concerns Section Related Observation LastModified by Organization Detai ls LastModified Time None Recorded Concern Status LastModified by Organization Details LastModified Time None Recorded Advance Directives Directive None Recorded Payers Encounter Date Sequence Insurance Name Policy Number Policy Castellano Covered Member ID Castellano Member ID Guarantor Name 07/14/[address] [place] [address] MEDICARE ADVANTAGE PLAN (MEDICARE REPLACEMENT HMO) [id number] Jarek Hwang [id number] Jarek Hwang Notes Date Note Type Note Provider Name and Address Organization Details Recorded Time 07/14/2024 text/html 68-year-old [id number] t man with right shoulder pain following traumatic injury. He fell on the ice on 06/12/2024 presents today for evaluation regarding his left shoulder pain and dysfunction Prior treatment: Prior right rotator cuff repair in 2012 Night symptoms: {{Present* Not present}} VAS Pain: At best,pain is rated a {{ 1#}} of 10. At worst, pain is rated at {{ 10#}} of 10.?? 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
--- OUTSIDE RECORDS SUMMARY | 2024-07-27 13:24 | XMS_ITS | Clinical Summary ---
Author Organization [facility] Address [address] [place] [address] Care Team Providers Care Purchasing Associate Name Role Phone Boom Patel MD Primary Care Provider [phone] Allergies No known active allergies Medications Medication [...] age to complete this topic Care Teams Purchasing Associate Relationship Specialty Start Date End Date Boom Patel MD [address] [place] [address] PCP - General Internal Medicine 05/24/19
== END 2024-07-27 12:36 | disposition home or self-care (01) ==
LOC: HO.RHES 10:55
PROVIDERS: Visit Provider Internal Medicine Rheumatology
DX: M19.041 Primary osteoarthritis, right hand (principal); M19.042 Primary osteoarthritis, left hand; M18.0 Bilateral primary osteoarthritis of first carpometacarpal joints
CPT/HCPCS: 99213; G2211

== ENCOUNTER → 2024-07-27 10:54 | Outpatient (BNVA) | payer MEDICARE, SELFPAY | PROVIDERS: Visit Provider Internal Medicine Rheumatology | DX: M19.041 Primary osteoarthritis, right hand (principal); M19.042 Primary osteoarthritis, left hand; M18.0 Bilateral primary osteoarthritis of first carpometacarpal joints | CPT/HCPCS: 99212 ==

== ENCOUNTER 2024-08-05 13:51 | Outpatient (AMB) | payer MEDICARE, SELFPAY ==
--- NOTE | 2024-08-05 13:53 | MHC.OFFVIS ---
Intake Visit Reasons: OV-Right Shoulder Pain - Discuss Surgery per [facility] Intake Note: Jarek is a 68 year old right hand dominant male who presents today for a follow up of his right shoulder. He complains of worsening right shoulder pain and weakness after slip and fall on 06/12/2024. MR/MR shoulder RT wo con IMPRESSION: Very limited exam due to motion and patient claustrophobia. The sagittal sequences are essentially nondiagnostic. 1. Complete retracted tears of the supraspinatus and subscapularis tendons. 2. Infraspinatus tendon appears largely intact although increased in signal consistent with tendinopathy. Evaluation of the tendon for discrete tearing is significantly limited due to motion. 3. Muscle strain injuries of the anterior mid deltoid, and the posterior aspect of the subscapularis muscle. 4. No bony fracture or contusion. Small amount of edema abuts subcortical cystic changes in the posterior greater tuberosity. 5. Joint effusion with moderate glenohumeral osteoarthritis, and superior subluxation of the humeral head upon the glenoid. 6. Mild widening of the AC joint with fluid signal, possibly postoperative in nature. No significant undersurface spurring. 7. There is subacromial spurring. Allergies No Known Allergies Allergy (Verified 07/27/24 11:06) HPI HPI OV-Right Shoulder Pain - Discuss Surgery per [facility]: Details: Jarek is a 68 year old right hand dominant male who presents today for a follow up of his right shoulder. He complains of worsening right shoulder pain and weakness after slip and fall on 06/12/2024. He is unable to comfortably get his hand to his mouth. He is improving slightly. He is active. He had surgery nearly 10 years ago on the right shoulder. [facility] Surgical History Hx of shoulder surgery (~2019) Social History Patient Tobacco Use Status: Former Tobacco user Physical Exam Extrem Other: 3/5 abduction right shoulder with + drop arm. Passive ER to 45 deg Office Procedures Joint Inj/Aspir; Non-Pain Clin Joint Injection/Drain Details: Injected 1 mL of Decadron and 3 mL 1% lidocaine and 3 mL of 0.25% Marcaine. Site was prepped using aseptic technique. Patient tolerated the procedure well. Shoulders, Hips, Knees, Shoulder Injection Large joint 42391: Right Shoulder Coding Procedure code (CPT) selection complete Results Reviewed Results Reviewed: O 1. Complete retracted tears of the supraspinatus and subscapularis tendons. 2. Infraspinatus tendon appears largely intact although increased in signal consistent with tendinopathy. Evaluation of the tendon for discrete tearing is significantly limited due to motion. 3. Muscle strain injuries of the anterior mid deltoid, and the posterior aspect of the subscapularis muscle. 4. No bony fracture or contusion. Small amount of edema abuts subcortical cystic changes in the posterior greater tuberosity. 5. Joint effusion with moderate glenohumeral osteoarthritis, and superior subluxation of the humeral head upon the glenoid. 6. Mild widening of the AC joint with fluid signal, possibly postoperative in nature. No significant undersurface spurring. 7. There is subacromial spurring. Assessment & Plan Assessment & Plan (1) Rotator cuff insufficiency of right shoulder: Code(s): M25.311 - Other instability, right shoulder Category: Medical Plan: RTC arthropathy but 3 mo ago was doing well until a fall in later May. I injected his shoulder and recommend PT and will see him in ~2 months. If no improvement will consider rTSA. Orders: Orders PT Evaluation and Treatment Today M25.311 - Other instability, right shoulder Coding Level of Care Code Est Pt Level 3 (82630) Diagnoses Rotator cuff insufficiency of right shoulder M25.311 CPT Codes Shoulders, Hips, Knees, - Shoulder Injection Large joint 06379: Right Shoulder ([id number])
== END 2024-08-05 14:48 | disposition home or self-care (01) ==
LOC: HO.HOS 13:52
PROVIDERS: Visit Provider Orthopaedic Surgery
DX: M25.311 Other instability, right shoulder (principal)
CPT/HCPCS: 20610; 99213

== ENCOUNTER → 2024-08-05 13:51 | Outpatient (BNVA) | payer MEDICARE, SELFPAY | PROVIDERS: Visit Provider Orthopaedic Surgery | DX: M25.511 Pain in right shoulder (principal); M25.311 Other instability, right shoulder; Z91.81 History of falling | CPT/HCPCS: 20610; 99212; J0665; J1100; J2003 ==

== ENCOUNTER 2024-12-23 10:26 | Outpatient (AMB) | payer MEDICARE, SELFPAY ==
[2024-12-23 10:30] VITALS: BMI 33.4
--- NOTE | 2024-12-23 10:30 | A.OFFVIS_ITS ---
Vital Signs 12/23/24 10:30 Height 5 ft 6 in Weight 207 lb BMI 33.4 Intake Visit Reasons: OV-Right Shoulder Pain, last inj 08/05/24 Intake Note: Jarek is a 68 year old right hand dominant male who presents today for a follow up of his right shoulder. At his last visit on 08/05/24 we injected the right shoulder, If this injection is not helpful we will discuss Right Reverse TSA. Patient reports that this injection was helpful for about 2 weeks. He would like to discuss TSA however her has been having SOB that has been concerning for him. He has been seen at [facility] and his PCP for this - was given a pulmonary appointment out in January but feels that he cannot wait this long. He is understanding that he will need to address this prior to surgical intervention. Allergies nabumetone Adverse Reaction (Intermediate, Uncoded 12/23/24 11:09) Nausea HPI HPI OV-Right Shoulder Pain, last inj 08/05/24: Details: Jarek is a 68 year old right hand dominant male who presents today for a follow up of his right shoulder. At his last visit on 08/05/24 we injected the right shoulder, If this injection is not helpful we will discuss Right Reverse TSA. Patient reports that this injection was helpful for about 2 weeks. He would like to discuss TSA however her has been having SOB that has been concerning for him. He has been seen at [facility] and his PCP for this - was given a pulmonary appointment out in January but feels that he cannot wait this long. He is understanding that he will need to address this prior to surgical intervention. The shortness of breath is disconcerting because he has seen his primary care doctor and had several tests but still has inability climb a flight of stairs and shortness of breath with ambulation. He is actually on his way to the emergency department now because he tried to get an appointment with a mail technician but could not get 1 for months. [facility] Surgical History Hx of shoulder surgery (~2019) Social History Patient Tobacco Use Status: Former Tobacco user Physical Exam Vital Signs: BMI result Body Mass Index 33.4 Extrem Other: 3/5 abduction right shoulder with + drop arm. Passive ER to 45 deg Assessment & Plan Assessment & Plan (1) Rotator cuff insufficiency of right shoulder: Code(s): M25.311 - Other instability, right shoulder Category: Medical Plan: Rotator cuff arthropathy of the right shoulder. We discussed surgery in his may benefit him but he currently is having shortness of breath and this is been present now for almost a month. He is on the way to the ED because he feels like he needs to address this and I agree. He is not in any acute distress but he feels like he can not go on like this. I would like to see him back in 6 we eks and we can rediscuss his plan for his right shoulder. Coding Level of Care Code Est Pt Level 3 (60973) Diagnoses Rotator cuff insufficiency of right shoulder M25.311
--- OUTSIDE RECORDS SUMMARY | 2024-12-23 10:56 | XMS_ITS ---
Author Name [facility] Organization Unknown History of Medication Use Medication Directions Dispensed Refills Start Date End Date Stat benzonatateTake 1 capsule (Oral) 3 times per day PRN - Cough for 5 [id number] times per [id number] 05/07/2023 acti ve chlorthalidoneTake (oral)[id number] frequency recordedoralNo set duration recordedNo set duration amount tssrbetykwgjjv95nr 12/20/2022 active losartanTake (oral)[id number] frequency recordedoralNo set duration recordedNo set duration amount tqrykxmfqpxisc07sx 12/20/2022 active finasterideTake (oral)[id number] frequency recordedoralNo set duration recordedNo set duration amount tgawpixpdruqve0ze 12/20/2022 active indomethacinTake (oral)[id number] frequency recordedoralNo set duration recordedNo set duration amount joykifteaaovdw34vc 11/07/2022 active amoxicillin 500 mg tablet TAKE 4 TABLETS BY MOUTH 1 HOUR PRIOR TO APPT active chlorthalidone 25 mg tablet TAKE 1 TABLET BY MOUTH EVERY DAY active finasteride 1 mg tablet TAKE 1 TABLET BY MOUTH EVERY DAY active fluticasone propionate 50 mcg/actuation nasal spray,suspension INSTILL 1 SPRAY INTO EACH NOSTRIL EVERY MORNING active GaviLyte-G 236 gram-22.74 gram-6.74 gram-5.86 gram oral solution TAKE 8 OUNCE BY MOUTH DIRECTED DRINK A GLASS EVERY 10-15 MINUTES active losartan 25 mg tablet TAKE 1 TABLET BY MOUTH EVERY DAY active meloxicam 15 mg tablet TAKE 1 TABLET BY MOUTH DAILY NEEDED FOR JOINT PAIN active metoprolol tartrate 25 mg tablet TAKE 1 TABLET BY MOUTH TWICE A DAY FOR 30 DAYS acti ve tadalafil 5 mg tablet TAKE 1 TABLET BY MOUTH AT THE SAME TIME EVERY DAY active tramadol 50 mg tablet TAKE 1 TABLET BY MOUTH EVERY 12 HOURS NEEDED FOR PAIN active Problems Problem Status Onset Date Problem Type Date of Resoluti on Source Tachycardia, unspecified active 2023-05-07 [facility] hypertension active [facility] Other specified arthritis, unspecified site active [facility] Hyperlipidemia, unspecified active [facility] Dyspnea, unspecified active 2023-05-07 [facility] Cough, unspecified active 2023-05-07 [facility] Traumatic right rotator cuff tear active 2024-07-22 ProblemAct [facility] Encounters Encounter Type Encounter Reason Primary Diagnosis Location Date Ambulatory [facility] 07/23/2024 Ambulatory [facility] [place] 07/14/2024 Ambulatory [facility] [place] 07/14/2024 Ambulatory [facility] [place] 07/09/2024 Ambulatory [facility] [place] 07/09/2024 Ambulatory [facility] [place] 07/24/2022 Care Team Organization Name Specialty Phone Email Start Date End Da te [facility] NO PROVIDER Primary Care 06/08/2023 10/27/2024 [facility] 023 10/27/2024 [facility] 023 05/07/2023
--- OUTSIDE RECORDS SUMMARY | 2024-12-23 10:56 | XMS_ITS | Clinical Summary ---
Author Organization [facility] Address [address] [place] [address] Care Team Providers Care Drying Machine Operator Package Yarns Name Role Phone Boom Patel MD Primary Care Provider [phone] Allergies No known active allergies Medications Medication [...] 1 - PCV) 12/15/2019 Influenza Vaccine (#1) 2025 RSV Adult > 60+ Yrs or Pregn ant (1 - 1-dose 75+ series) 2029 Hepatitis B Vaccines Aged Out No long er eligible based on patient's age to complete this topic RSV Ped < 20 months Aged Out No longe r eligible based on patient's age to complete this topic Care Teams Drying Machine Operator Package Yarns Relationship Specialty Start Date End Date Boom Patel MD [address] [place] [id number] PCP - General Internal Medicine 05/24/19
--- OUTSIDE RECORDS SUMMARY | 2024-12-23 10:56 | XMS_ITS | Clinical Summary ---
Author Organization [facility] Address [address] [place] [address] Phone Care Team Providers Care Tour Guide Name Role Phone Maximus Mendoza MD Primary Care Provider [phone] Surgical History Surgery Date Site/Laterality Comments KNEE [...] Panel) 04/16/2022 Colorectal Cancer Screening: Colonoscopy 04/16/2022 Falls Risk Assessment 04/16/2022 Hepatitis C Screening 04/16/2022 Social Influencers of Health Screening 04/16/2022 COVID-19 Vaccine (1 - 2023-2 5 season) 2024 Depression Screening 05/19/2024 Influenza Vaccine (#1) 2025 RSV Immunization Adult Patie nts (1 - 1-dose 75+ series) 2029 HIB [...] age to complete this topic Meningococcal B Vaccine Aged Out No l onger eligible based on patient's age to complete this topic RSV Immunization Patients Un christy 20 months Aged Out No longer eligible b ased on patient's age to complete this topic Varicella Vaccines Aged Out No longer eligible based on patient's age to complete this topic Care Teams Tour Guide Relationship Specialty Start Date End Date Maximus Mendoza MD [address] [place] [id number] PCP - General 06/12/22
== END 2024-12-23 11:00 | disposition home or self-care (01) ==
LOC: HO.HOS 10:26
PROVIDERS: Visit Provider Orthopaedic Surgery
DX: M25.311 Other instability, right shoulder (principal)
CPT/HCPCS: 99213

== ENCOUNTER → 2024-12-23 10:26 | Outpatient (BNVA) | payer MEDICARE, SELFPAY | PROVIDERS: Visit Provider Orthopaedic Surgery | DX: M25.511 Pain in right shoulder (principal); M25.311 Other instability, right shoulder | CPT/HCPCS: 99212 ==

== ENCOUNTER 2024-12-23 11:03 | Emergency (ER) | payer MEDICARE, SELFPAY ==
--- NOTE | ~2024-12-23 | XR_ITS ---
EXAMINATION: XR CHEST CLINICAL INFORMATION: dyspnea COMPARISON: None available. TECHNIQUE: 2 views of the chest were obtained. FINDINGS: No consolidation, pleural effusion or pneumothorax. No hyperinflation. Cardiomediastinal silhouette size is normal. Multilevel spondylosis. Osteopenia versus osteoporosis. Degenerative changes in the shoulders. XR/XR chest 2V IMPRESSION: No acute airspace disease. Electronically signed by: Obi Singh MD 12/23/2024 12:24 PM EDT
--- NOTE | 2024-12-23 11:07 | ED.GENADULT ---
HPI - General Adult General Chief complaint: Dyspnea Stated complaint: diff breathing Time Seen by Provider: 12/23/24 16:08 History of Present Illness ED Provider: sabrina HPI narrative: 69 M hx HTN, remote 8 Pack year smoker quit @ 19 yo. C/o 2 wk JIMENEZ unusual for him, No chest pain. Mild occassional cough only when throat feels. Related Data Home Medications ?Medication ?Instructions ?Recorded ?Confirmed chlorthalidone 25 mg tablet 25 mg PO DAILY 11/07/22 06/30/24 finasteride 1 mg tablet 1 mg PO DAILY 11/07/22 06/30/24 losartan 25 mg tablet 25 mg PO DAILY 11/07/22 06/30/24 meloxicam 15 mg tablet 15 mg PO DAILY 11/07/22 06/30/24 metoprolol succinate 25 mg 25 mg PO BID 04/22/24 06/30/24 tablet,extended release 24 hr Previous Rx's ?Medication ?Instructions ?Recorded cmc splints bilateral #2 ea 06/09/24 tramadol 50 mg tablet 50 mg PO Q12H PRN pain #30 tabs 06/16/24 arm brace (Wrist Brace) #1 ea 07/27/24 nabumetone 500 mg tablet 500 mg PO BID #60 tabs 07/27/24 albuterol sulfate 90 mcg/actuation 2 puff inhalation Q6H PRN 12/23/24 aerosol inhaler shortness of breath or wheezing #8.5 grams prednisone 20 mg tablet 60 mg (3 x 20 mg) PO DAILY 4 days 12/23/24 #12 tabs Allergies Allergy/AdvReac Type Severity Reaction Status Date / Time nabumetone AdvReac Intermediate Nausea Uncoded 12/23/24 11:09 [facility] Past Medical History Surgical History Hx of shoulder surgery (~2019) Social History Social History Unable to assess alcohol history related to: Unknown Patient Tobacco Use Status: Former Tobacco user Smoked in Last 30 Days: No Use of substances other than those prescribed or required for medical reasons: No Advance Directives: No Advance Directives Information Provided: No Physical Exam ED Exam Exam: EXAM: Gen: Alert, awake, well appearing, well hydrated. Head: Atraumatic Eyes: Anicteric, Normal conjunctiva. ENT: Moist mucosa, no pallor. ? Neck: Supple. Skin: ?No observable rash or bruising on exposed or examined skin Respiratory: Breathing comfortably, No distress.Clear to auscultation bilaterally, symmetric chest expansion, No wheeze, rales, ronchi. Cardiovascular: Regular rate and rhythm. No murmurs or rub. Well perfused periphery, warm extremities. No edema. ? Abdominal: No focal tenderness. Soft, no objective distension. No palpable masses or obvious organomegaly. ?No guarding, no rebound tenderness or other peritoneal findings. : No flank tenderness. Neuro: Alert. Gross movement of all extremities intact. ? Psych: Calm. Cooperative. MSK: No grossly visible deformity. Vital signs: See flowsheet Vital Signs: Vital Signs - 24 hr 12/23/24 11:08 12/23/24 16:54 12/23/24 17:02 Temperature 98.4 F 96.9 F 96.9 F Pulse Rate 89 90 90 Respiratory Rate 16 18 18 Blood Pressure 140/68 H 157/90 H 157/90 H Pulse Oximetry 97 100 100 Oxygen Delivery Method Room Air Room Air Room Air BMI result Body Mass Index 34.3 Course Course Course Narrative: This is a rapid medical exam performed by Perico Quinones NP: Additional HPI, ROS, PE not included below will be deferred to primary provider. Patient is a 69-year-old male presenting with dyspnea/JIMENEZ for the past 3 weeks. Progressive worsening. Has been to [facility] for same sxs, PCP referred to cardiology for Change in LV systolic function to hyperdynamic?/shortness of breath on exertion but was here at ortho appointment today so come to this ED. Plan: EKG, labs, CXR Medical Decision Making Medical Decision Making MDM Narrative: Medical Decision Makin-year-old male with a remote tobacco smoking history recent verbally reported normal echo and shortness of breath for 2-4 weeks. Appears well perhaps mildly dyspneic visibly on brisk proximally 100 ft walk in the ED but no hypoxia. No clinical signs of DVT doubt PE. Clear lungs no wheezing however could be mild or subtle bronchospasm or underlying perhaps mild COPD. Troponin negative no chest pain doubt ACS. Reassuring workup here. Spoke to the partner who is a nurse we discussed the case had shared decision-making together felt it was reasonable to do a trial of albuterol PRN and brief steroid course close PCP follow up for pulmonary referral Preliminary Favored Differential Diagnosis: Deconditioning, CHF, pleural effusion, bronchospasm inflammatory lung disease, COPD among additional considered etiologies Testing Interpreted Independently: EKG: Sinus rhythm rate 85 QTC 430 no acute ischemic changes normal intervals and axis Radiology or Lab testing Results Reviewed: No actionable lab findings. Consults: Not Applicable Independent Historians/External Chart Reviews: Not Applicable Social Determinants of Health Impacting MDM/Planning: Not Applicable Lab Data MDM Lab Attestation statement: I reviewed the patient's lab results. 12/23/24 11:32 12/23/24 11:32 Labs: Lab Results 12/23/24 Range/Units 11:32 WBC 6.4 (4.8-10.8) X10*3/uL RBC 4.22 L (4.60-5.80) X10*6/uL Hgb 13.6 L (14.0-18.0) g/dl Hct 38.9 L (42.0-52.0) % MCV 92.2 (80.0-98.0) fL MCH 32.2 (27.0-33.0) pg MCHC 35.0 (31.0-36.0) g/dl RDW 13.2 (11.0-16.0) % Plt Count 203 (160-400) X10*3/uL MPV 8.8 L (9.4-12.4) fL Immature Gran % (Auto) 0.5 H (0.0-0.4) % Neut % (Auto) 53.8 (45-73) % Lymph % (Auto) 30.9 (20-40) % [place] % (Auto) 12.2 H (2-11) % Eos % (Auto) 1.7 (0-4) % Baso % (Auto) 0.9 (0-2) % Lymph # (Auto) 2.0 (1.2-4.9) X10*3/uL [place] # (Auto) 0.8 (0.1-1.2) X10*3/uL Eos # (Auto) 0.1 (0.0-0.4) X10*3/uL Baso # (Auto) 0.1 (0.0-0.2) X10*3/uL Abs Immat Gran (auto) 0.03 (0.00-0.03) X10*3/uL Absolute Neuts (auto) 3.5 (2.0-8.3) x10*3/uL Absolute Nucleated RBC 0.000 (0.0-0.012) X10*3/uL Nucleated RBC % (auto) 0.0 (0.0-0.2) /100WBC PT 11.3 (10.9-12.4) SEC INR 1.0 (0.9-1.1) D-Dimer High Sensitivty 249 NG/ML Sodium 138 (135-145) mmol/L Potassium 3.5 (3.3-5.1) mmol/L Chloride 101 (96-108) mmol/L Carbon Dioxide 26 (22-29) mmol/L Anion Gap 15 (12-20) BUN 13 (9-16) mg/dL Creatinine 1.19 (0.5-1.4) mg/dL Estim Creat Clear Calc 62.7 Estimated GFR > 60 Random Glucose 89 (60-115) mg/dL Calcium 8.9 (8.4-10.2) mg/dL Magnesium 1.9 (1.6-2.6) mg/dL Total Bilirubin 0.3 (0.0-1.0) mg/dL AST 26 (5-37) U/L ALT 23 (0-40) U/L Alkaline Phosphatase 66 (39-117) U/L Troponin I High Sens 3.9 (<3.5-35.0) ng/L B-Natriuretic Peptide 18 (<100) pg/mL Total Protein 6.8 (6.5-8.0) g/dL Albumin 4.1 (3.5-5.0) g/dL Discharge Plan Discharge Clinical Impression: Breathlessness on exertion Patient Disposition: Home, Self-Care Instructions: Dyspnea (ED) Additional Instructions: DISCHARGE DIAGNOSES: Shortness of breath, unclear cause reassuring ED workup HISTORY OF PRESENTATION: ?Shortness of breath on exertion for 2 weeks EMERGENCY DEPARTMENT COURSE,TESTS, TREATMENTS: While in the ED today you had an x-ray EKG physical examination and lab work that was all reassuring. You did not have any wheezing or focal findings on your lung exam. You did not have any low oxygen levels DISCHARGE MEDICATIONS: ?[We have made no changes to your regular medication regimen] FOLLOW-UP: ?Call your primary or general physician soon as possible to discuss your symptoms, your ED visit and to discuss follow up plans Primary doctor and pulmonology INSTRUCTIONS ?& RETURN PRECAUTIONS: If any symptoms change first call your primary physician, if it is after-hours your primary doctors office should have a provider vice president of consulting services you can speak with. If the symptoms are severe or very concerning to you then call 911 or return to the ED. [07] Michael Chacon MD Emergency Physician [facility] Prescriptions: New prednisone 20 mg tablet 60 mg PO DAILY 4 Days Qty: 12 0RF albuterol sulfate 90 mcg/actuation HFA aerosol inhaler 2 puff inhalation Q6H PRN (Reason: shortness of breath or wheezing) Qty: 8.5 0RF No Action (DME) cmc splints bilateral See Rx Instructions .Route .MEDSUPPLY Qty: 2 0RF Rx Instructions: As directed tramadol 50 mg tablet 50 mg PO Q12H PRN (Reason: pain) Qty: 30 0RF meloxicam 15 mg tablet 15 mg PO DAILY chlorthalidone 25 mg tablet 25 mg PO DAILY losartan 25 mg tablet 25 mg PO DAILY finasteride 1 mg tablet 1 mg PO DAILY nabumetone 500 mg tablet 500 mg PO BID Qty: 60 2RF Rx Instructions: Take with food. Replace meloxicam and ibuprofen (DME) Wrist Brace Misc See Rx Instructions .Route Qty: 1 0RF Rx Instructions: As directed Dx: cmc osteoarthritis Bilateral CMC splints custom made metoprolol succinate 25 mg tablet extended release 24 hr 25 mg PO BID Interventions: ED Discharge Assessment Last Done: 12/23/24 17:02 Discharge Date/Time: 12/23/24 17:03 Print Language: Kuwaiti
[2024-12-23 11:08] VITALS: BP 140/68; PULSE 89; RESP 16; TEMP 36.9; O2SAT 97; BMI 34.3
--- NOTE | 2024-12-23 11:10 | ECG_ITS ---
Test Reason : DYSPNEA Blood Pressure : */* mmHG Vent. Rate : 85 BPM Atrial Rate : 85 BPM P-R Int : 146 ms QRS Dur : 88 ms QT Int : 362 ms P-R-T Axes : 49 -4 33 degrees QTcB Int : 430 ms Normal sinus rhythm with sinus arrhythmia Normal ECG No previous ECGs available Referred By: Grace Quinones Electronically Signed By: HAKEEM LOZOYA
[2024-12-23 11:39] LABS: MANUAL DIFF FLAG NO
[2024-12-23 11:42] LABS: Hematocrit 38.9 % (42.0-52.0); Hemoglobin 13.6 g/dl (14.0-18.0); Imm Gran Abs Auto 0.03 X10*3/uL (0.00-0.03); Imm Gran Pct Auto 0.5 % (0.0-0.4); Lymphocytes Absolute Auto 2.0 X10*3/uL (1.2-4.9); Mean Corpuscular HGB Conc 35.0 g/dl (31.0-36.0); Mean Corpuscular Hemoglobin 32.2 pg (27.0-33.0); Mean Corpuscular Volume 92.2 fL (80.0-98.0); NRBC Abs Auto 0.000 X10*3/uL (0.0-0.012); NRBC Pct Auto 0.0 /100WBC (0.0-0.2); Platelet Count 203 X10*3/uL (160-400); Red Blood Count 4.22 X10*6/uL (4.60-5.80); White Blood Count 6.4 X10*3/uL (4.8-10.8)
[2024-12-23 11:56] LABS: Alanine Aminotransferase 23 U/L (0-40); Albumin Level 4.1 g/dL (3.5-5.0); Alkaline Phosphatase 66 U/L (39-117); Anion Gap 15 (12-20); Aspartate Amino Transferase 26 U/L (5-37); Blood Urea Nitrogen 13 mg/dL (9-16); Calcium 8.9 mg/dL (8.4-10.2); Carbon Dioxide 26 mmol/L (22-29); Chloride 101 mmol/L (96-108); Creatinine Clr Calc Pharmacy 62.7; Estimated Glomerular Filt Rate > 60; Magnesium 1.9 mg/dL (1.6-2.6); Potassium 3.5 mmol/L (3.3-5.1); Sodium 138 mmol/L (135-145); Total Protein 6.8 g/dL (6.5-8.0)
[2024-12-23 11:59] LABS: INTERNATIONAL NORM RATIO 1.0 (0.9-1.1); Prothrombin Time 11.3 SEC (10.9-12.4)
[2024-12-23 12:02] LABS: B Type Natriuretic Peptide 18 pg/mL (<100)
[2024-12-23 12:04] LABS: Troponin-I High Sensitivity 3.9 ng/L (<3.5-35.0)
[2024-12-23 16:49] LABS: D Dimer High Sensitivity 249 NG/ML
[2024-12-23 16:54] VITALS: BP 157/90; PULSE 90; RESP 18; TEMP 36.1; O2SAT 100
[2024-12-23 17:02] VITALS: BP 157/90; PULSE 90; RESP 18; TEMP 36.1; O2SAT 100
== END 2024-12-23 17:03 | disposition home or self-care (01) ==
PROVIDERS: Registered Nurse Emergency; Emergency Provider Emergency Medicine; PCP Internal Medicine
DX: R06.00 Dyspnea, unspecified (principal); R06.02 Shortness of breath; Z87.891 Personal history of nicotine dependence
CPT/HCPCS: 36415; 71046; 80053; 83735; 83880; 84484; 85025; 85379; 85610; 93005; 99283; 99284

== ENCOUNTER → 2024-12-23 11:10 | Outpatient (BNV) | payer MEDICARE, SELFPAY | PROVIDERS: Emergency Provider Emergency Medicine; PCP Internal Medicine; Visit Provider Internal Medicine | DX: R06.00 Dyspnea, unspecified (principal) | CPT/HCPCS: 93010 ==

== ENCOUNTER → 2024-12-23 11:11 | Outpatient (BNV) | payer MEDICARE, SELFPAY | PROVIDERS: Visit Provider Radiology Diagnostic Radiology | DX: R06.00 Dyspnea, unspecified (principal) | CPT/HCPCS: 71046 ==